=== PATIENT | male | born 1970 | race Caucasian/White ===

== ENCOUNTER → 2019-02-17 | Outpatient (CLI) | payer OTHER ==
[2019-02-17 11:36] LABS: ALBUMIN 4.6 g/dL (3.4-5.0); AST/SGOT 16 U/L (15-37); BILIRUBIN TOTAL 0.73 mg/dL (0.20-1.00); CALCIUM 9.8 mg/dL (8.5-10.1); CARBON DIOXIDE 27.6 mmol/L (21-32); CHLORIDE SERUM 103 mmol/L (98-107); CREATININE SERUM 0.8 mg/dL (0.7-1.3); GFR1 > 60 mL/min; GLUCOSE SERUM 137 mg/dL (74-106); POTASSIUM SERUM 4.4 mmol/L (3.5-5.1); SODIUM SERUM 139 mmol/L (136-145); TOTAL PROTEIN, SERUM 8.3 g/dL (6.4-8.2)
[2019-02-17 11:37] LABS: ALKALINE PHOSPHATASE 65 U/L (46-116); ALT/SGPT 40 U/L (16-63); CHOLESTEROL 190 mg/dL (<200); CHOLESTEROL/HDL RATIO 5.6; HDL CHOLESTEROL 34 mg/dL (40-60); TRIGLYCERIDES 125 mg/dL (<150)
== END | disposition home or self-care (01) ==
LOC: LB 10:04
DX: E78.2 Mixed hyperlipidemia (principal); I15.9 Secondary hypertension, unspecified; E66.3 Overweight; E08.9 Diabetes mellitus due to underlying condition without complications; R76.0 Raised antibody titer

== ENCOUNTER → 2019-05-12 | Outpatient (CLI) | payer OTHER ==
[2019-05-12 09:00] LABS: ALKALINE PHOSPHATASE 62 U/L (46-116); ALT/SGPT 42 U/L (16-63); AST/SGOT 41 U/L (15-37); BILIRUBIN TOTAL 0.5 mg/dL (0.20-1.00); CALCIUM 8.3 mg/dL (8.5-10.1); CARBON DIOXIDE 26.9 mmol/L (21-32); CHLORIDE SERUM 102 mmol/L (98-107); GFR1 > 60 mL/min; GLUCOSE SERUM 142 mg/dL (74-106); POTASSIUM SERUM 4.2 mmol/L (3.5-5.1); SODIUM SERUM 138 mmol/L (136-145); TOTAL PROTEIN, SERUM 7.7 g/dL (6.4-8.2)
== END | disposition home or self-care (01) ==
LOC: LB 07:52
DX: E78.2 Mixed hyperlipidemia (principal); I25.9 Chronic ischemic heart disease, unspecified; E66.3 Overweight; E08.9 Diabetes mellitus due to underlying condition without complications; K76.0 Fatty (change of) liver, not elsewhere classified

== ENCOUNTER → 2019-06-23 | Outpatient (CLI) | payer OTHER | END | disposition home or self-care (01) | LOC: LB 08:29 | DX: R10.9 Unspecified abdominal pain (principal) ==